=== PATIENT | female | born 1980 | race Caucasian/White ===

== ENCOUNTER 2019-01-14 13:41 | Emergency (ER) | payer MEDICAID ==
[~2019-01-14] VITALS: Ht 175.3 cm; Wt 97.5 kg
[2019-01-14 13:54] VITALS: BP 136/76
[2019-01-14] MEDS ORDERED: diphenhdrAMINE HCL 25 MG CAP PO ONE (16:00)
[2019-01-14] MEDS ORDERED: ONDANSETRON ODT 4 MG TAB PO ONE (16:00)
[2019-01-14] MEDS ORDERED: KETOROLAC TROMETH 60MG/2ML VIAL IM ONE (16:00)
[2019-01-14] MEDS ORDERED: SODIUM CHLORIDE 0.9% 1,000 ML IV ONE (16:56)
[2019-01-14 18:30] LABS: Urine Bacteria FEW /hpf (None Seen); Urine Blood TRACE /uL (Negative); Urine Mucus FEW (None Seen); Urine Specific Gravity 1.018 (1.001-1.035); Urine WBC 1 /hpf (0 - 5)
== END 2019-01-14 19:09 | disposition home or self-care (01) ==
LOC: ER 13:41
DX: G43.909 Migraine, unspecified, not intractable, without status migrainosus (principal); N39.0 Urinary tract infection, site not specified
CPT/HCPCS: 70450; 81001; 81025; 96360; 96372; 99284; J1885; J7030; Q0162

== ENCOUNTER 2019-07-26 20:41 | Emergency (ER) | payer MEDICAID ==
[~2019-07-26] VITALS: Ht 162.6 cm; Wt 90.7 kg
[2019-07-26 21:25] VITALS: BP 127/81
[2019-07-26 22:20] LABS: Urine Pregnacy Test Negative (Negative)
[2019-07-26 22:22] LABS: Urine Bacteria FEW /hpf (None Seen); Urine Blood TRACE /uL (Negative); Urine Hyaline Cast FEW /lpf (0 - 2); Urine Mucus FEW (None Seen); Urine Specific Gravity 1.018 (1.001-1.035); Urine WBC 6 /hpf (0 - 5)
[2019-07-26 22:32] LABS: Alcohol, Urine < 3.0 mg/dL (0-5); Amphetamine Screen, Urine NEGATIVE (NEGATIVE); Barbiturate Scree,Urine NEGATIVE (NEGATIVE); Benzodiazephine Screen, Urine NEGATIVE (NEGATIVE); Cannabinoid Screen, Urine NEGATIVE (NEGATIVE); Cocaine Screen, Urine NEGATIVE (NEGATIVE); Opiate Scree,Urine POSITIVE (NEGATIVE); Phencyclidine Screen, Urine NEGATIVE (NEGATIVE)
== END 2019-07-27 00:49 | disposition left against medical advice (07) ==
LOC: EDSEX 20:41 → EDBD 20:41 → ER 20:43
DX: G43.909 Migraine, unspecified, not intractable, without status migrainosus (principal); F17.210 Nicotine dependence, cigarettes, uncomplicated; Z53.29 Procedure and treatment not carried out because of patient's decision for other reasons
CPT/HCPCS: 70450; 80307; 81001; 81025